=== PATIENT | female | born 1940 | race Caucasian/White ===

== ENCOUNTER 2022-04-25 09:30 | Day surgery (SDC) | payer MEDICARE, MEDICAID, SELFPAY ==
[2022-03-30 08:50] VITALS: BMI 31.2
--- NOTE | 2022-03-31 13:25 | MHC.SHP ---
Pre-Procedural Eval Section A Date of Service: 03/31/22 The patient is an INPATIENT: No Changes since office visit: No Cold of Flu in the past 2 weeks, No New Medical Problems, No Changes in Medication and No Patient answered all questions The History & Physical has been completed within 30 days and I have reviewed it.: Yes Section B Chief Complaint: Age-related nuclear cataract, right eye Allergies: Allergies Allergy/AdvReac Type Severity Reaction Status Date / Time Sulfa (Sulfonamide Allergy Intermediate HEADACHE Unverified 06/11/20 15:34 Antibiotics) [SULFA (SULFONAMIDE ANTIBIOTICS)] generic warfarin AdvReac Intermediate unable to Uncoded 03/30/22 08:50 regulate INR Plan Diagnosis/Plan: Unchanged I have reviewed the history and physical and performed a pertinent physical examination on my patient. No changes have occurred unless specified.
--- NOTE | 2022-04-01 09:31 | P.CONAN_ITS ---
Documented by User: Bee Goldberg NP 04/22/22 14:05 HPI - Anesthesia Eval Consult details Narrative: 81yo F for Right Cataract Extraction IOL Insertion 04/25/22 PCP cleared No previous cataract on record DNR SNF resident, Son is HCP for consents Xarelto for afib/PE [facility] Past Medical History Medical History (Updated 03/30/22 @ 09:08 by Digna Sweeney, MAUREEN) Aortic stenosis Atrial fibrillation Borderline diabetes CAD (coronary artery disease) CHF (congestive heart failure) COVID-19 vaccine series completed CVA (cerebral vascular accident) Elevated cholesterol HTN (hypertension) Pulmonary embolism Resides in alf care facility Seizures Unsteady gait Surgical History Surgical History (Updated 03/30/22 @ 08:50 by Digna Sweeney RN) H/O colonoscopy Hx of heart artery stent Social History Social History Are you a primary healthcare consultant to a significant other at home: No Do you presently have visiting nurse or other home services: Yes (resides at [facility] [place]) Patient Tobacco Use Status: Never used Tobacco Use of substances other than those prescribed or required for medical reasons: No Have you been hit, kicked, punched, or otherwise hurt by someone within the past year? If so, by whom?: No Are you DNR?: Yes Advance Directives: No Advance Directives Information Provided: Yes Advance Directives on File: Yes Advance Directives Date on File: 10/31/13 Recently lost weight without trying: No Nutrition Risks: Surgical patient >75years Poor oral hygiene: No (upper full and lower partial denture) Meds Allergies Allergy/AdvReac Type Severity Reaction Status Date / Time Sulfa (Sulfonamide Allergy Intermediate HEADACHE Unverified 06/11/20 15:34 Antibiotics) [SULFA (SULFONAMIDE ANTIBIOTICS)] generic warfarin AdvReac Intermediate unable to Uncoded 03/30/22 08:50 regulate INR Home Medications Medication Instructions Recorded Confirmed Last Taken Type acetaminophen 325 mg tablet 650 mg PO Q4H PRN Pain 03/30/22 03/30/22 Unknown History atorvastatin 80 mg tablet 80 mg PO BEDTIME 03/30/22 03/30/22 Unknown History calcium carbonate 600 mg calcium 600 mg PO DAILY 03/30/22 03/30/22 Unknown History (1,500 mg) tablet (Calcium) docusate sodium 100 mg capsule 100 mg PO BID 03/30/22 03/30/22 Unknown History (Colace) furosemide 40 mg tablet 40 mg PO DAILY 03/30/22 03/30/22 Unknown History levetiracetam 100 mg/mL oral 1,500 mg PO DAILY 03/30/22 03/30/22 Unknown History solution metoprolol tartrate 25 mg tablet 25 mg PO DAILY 03/30/22 03/30/22 Unknown History multivitamin 1 tab PO DAILY 03/30/22 03/30/22 Unknown History potassium chloride 20 mEq oral 20 meq PO DAILY 03/30/22 03/30/22 Unknown History packet rivaroxaban 15 mg tablet (Xarelto) 15 mg PO DAILY 03/30/22 03/30/22 Unknown History topiramate 100 mg tablet 100 mg PO DAILY 03/30/22 03/30/22 Unknown History Exam Exam Date and Time: April 01, 2022930 Height,Weight and Vital Signs: Height 5 ft Weight 72.575 kg Assessment and Plan Assessment Anesthesia Assessment: Chart Reviewed Documented by User: Adrianne Winchester MD 04/25/22 14:03 [facility] Past Medical History Medical History (Updated 03/30/22 @ 09:08 by Digna Sweeney RN) Aortic stenosis Atrial fibrillation Borderline diabetes CAD (coronary artery disease) CHF (congestive heart failure) COVID-19 vaccine series completed CVA (cerebral vascular accident) Elevated cholesterol HTN (hypertension) Pulmonary embolism Resides in [facility] Seizures Unsteady gait Family History Family history of problems with anesthesia: No Surgical History Surgical History (Updated 03/30/22 @ 08:50 by Digna Sweeney RN) H/O colonoscopy Hx of heart artery stent History of Problems with Anesthesia: No Social History Social History Are you a primary healthcare consultant to a significant other at home: No Do you presently have visiting nurse or other home services: Yes (resides at [facility] [place]) Patient Tobacco Use Status: Never used Tobacco Use of substances other than those prescribed or required for medical reasons: No Have you been hit, kicked, punched, or otherwise hurt by someone within the past year? If so, by whom?: No Are you DNR?: Yes Advance Directives: No Advance Directives Information Provided: Yes Advance Directives on File: Yes Advance Directives Date on File: 10/31/13 Recently lost weight without trying: No Nutrition Risks: Surgical patient >75years Poor oral hygiene: No (upper full and lower partial denture) Meds Allergies Allergy/AdvReac Type Severity Reaction Status Date / Time Sulfa (Sulfonamide Allergy Intermediate HEADACHE Unverified 06/11/20 15:34 Antibiotics) [SULFA (SULFONAMIDE ANTIBIOTICS)] generic warfarin AdvReac Intermediate unable to Uncoded 03/30/22 08:50 regulate INR Home Medications Medication Instructions Recorded Confirmed Last Taken Type acetaminophen 325 mg tablet 650 mg PO Q4H PRN Pain 03/30/22 03/30/22 Unknown History atorvastatin 80 mg tablet 80 mg PO BEDTIME 03/30/22 03/30/22 Unknown History calcium carbonate 600 mg calcium 600 mg PO DAILY 03/30/22 03/30/22 Unknown History (1,500 mg) tablet (Calcium) docusate sodium 100 mg capsule 100 mg PO BID 03/30/22 03/30/22 Unknown History (Colace) furosemide 40 mg tablet 40 mg PO DAILY 03/30/22 03/30/22 Unknown History levetiracetam 100 mg/mL oral 1,500 mg PO DAILY 03/30/22 03/30/22 Unknown History solution metoprolol tartrate 25 mg tablet 25 mg PO DAILY 03/30/22 03/30/22 Unknown History multivitamin 1 tab PO DAILY 03/30/22 03/30/22 Unknown History potassium chloride 20 mEq oral 20 meq PO DAILY 03/30/22 03/30/22 Unknown History packet rivaroxaban 15 mg tablet (Xarelto) 15 mg PO DAILY 03/30/22 03/30/22 Unknown History topiramate 100 mg tablet 100 mg PO DAILY 03/30/22 03/30/22 Unknown History Exam Height,Weight and Vital Signs: Height 5 ft Weight 72.575 kg Vital Signs Temp Pulse Resp BP Pulse Ox O2 Del Method 98.2 F 111 H 18 91/67 95 04/25/22 12:33 04/25/22 12:33 04/25/22 12:33 04/25/22 12:33 04/25/22 12:33 04/25/22 12:33 Airway Mallampati Class: II TM Dist: >3cm Neck ROM: Full Denture: Upper Partial: Lower Heart: ?RRR + systolic murmur Lungs: CTAB Assessment and Plan Assessment Anesthesia Assessment: Anesthesia Plan Discussed Final Anesthetic Review Family History of Problems with Anesthesia: No History of Problems with Anesthesia: No NPO: Yes ASA Class: III Final Preanesthetic Review: No Changes in Pt Med Stat, Meds/Allgs Chart Reviewed, Consent Obtained/Reviewed, Anes Risks/Benef Reviewed and DNR Form (If Appl.) Patient Risk: Intermediate Procedure Risk: Low Assessment/Block/Sedation in SS: Assess/Block/Sedation-SS Anesthetic Plan Anesthetic Plan: MAC: Disposition: Standard PACU
[2022-04-25 12:33] VITALS: BP 91/67; PULSE 111; RESP 18; TEMP 36.8; O2SAT 95
[2022-04-25 12:39] VITALS: BP 91/67; PULSE 111; RESP 18; TEMP 36.8; O2SAT 95
[2022-04-25] MEDS: Tetracaine HCl/PF 0.5% Oph Sol 4 ML DROPS 1 DROP EYE-RIGHT (12:46)
[2022-04-25] MEDS: Tropicamide 1 % Ophth Sol 3 ML BTL 1 DROP EYE-RIGHT ×4 (12:47→12:54)
[2022-04-25] MEDS: Phenylephrine HCL 2.5% Oph SoL 2 ML BOTTLE 1 DROP EYE-RIGHT ×3 (12:47→12:55)
[2022-04-25] MEDS: Cyclopentolate 1 % Ophth Sol 2 ML DRPBTL 1 DROP EYE-RIGHT ×3 (12:47→12:56)
--- NOTE | 2022-04-25 12:59 | HO.PNOPHT ---
Ophthalmology Procedure Procedure Date of Service: 04/25/22 Ophthalmology Viscoelastic: Haydee Méndez Dual Pack Pro Ophthalmology Lenses: TECMANNY [id number] (23) Procedure Notes: PREOPERATIVE DIAGNOSIS: Decreased visual acuity right eye secondary to cataract POSTOPERATIVE DIAGNOSIS: Same PROCEDURE: Right cataract extraction with intraocular lens insertion SURGEON: Oscar Guevara M.D. ANESTHESIA: Topical/MAC ESTIMATED BLOOD LOSS: None COMPLICATIONS: None After obtaining informed consent, the patient was brought to the operating room suite and placed in the supine position. After adequate sedation per anesthesia, topical drops of Tetracaine were given to the right eye. The eye was then prepped and draped in the usual sterile fashion. The operating room microscope was then positioned over the operative eye and a lid speculum placed. A paracentesis was created. Viscoelastic was then instilled into the anterior chamber. A three plane incision was then created temporally, utilizing a 2.85 mm keratome. An air bubble was placed prior to the introduction of Visadyne to stain the anterior capsule.Capsulotomy forceps were then utilized to create a circular tear capsulotomy. Hydrodissection and hydrodelineation were carried out until adequate mobilization of the nucleus occurred. Phacoemulsification was then utilized to remove the dense central nucleus followed by removal of the cortical material utilizing the automated aspiration irrigation unit. Viscoelastic was instilled into the posterior capsular bag followed by placement of a posterior chamber intraocular lens without difficulty. The residual Viscoelastic was then removed utilizing the automated IA machine. The wound was checked and found to be watertight. The patient tolerated the procedure well and the lid speculum was removed. Intracameral injection of Vigamox 0.1 mL followed by a subtenon injection of Kenalog-40 0.2 mL were administered. The patient will be seen in the a.m.
[2022-04-25] MEDS: Lactated Ringers 500 ML 50 ML IV (13:12)
[2022-04-25 14:16] VITALS: BP 126/62; PULSE 85; RESP 16; TEMP 36.4; O2SAT 99
== END 2022-04-25 14:20 | disposition home or self-care (01) ==
PROVIDERS: Visit Provider Ophthalmology
PROC: (CPT 66985; principal; 2022-04-25 13:00)
DX: H25.11 Age-related nuclear cataract, right eye (principal); H54.7 Unspecified visual loss; I25.10 Atherosclerotic heart disease of native coronary artery without angina pectoris; Z98.61 Coronary angioplasty status; I48.91 Unspecified atrial fibrillation; Z79.01 Long term (current) use of anticoagulants; E78.00 Pure hypercholesterolemia, unspecified; I50.9 Heart failure, unspecified; I11.0 Hypertensive heart disease with heart failure; M81.0 Age-related osteoporosis without current pathological fracture; Z79.899 Other long term (current) drug therapy; Z88.2 Allergy status to sulfonamides; F03.90 Unspecified dementia, unspecified severity, without behavioral disturbance, psychotic disturbance, mood disturbance, and anxiety; Z86.73 Personal history of transient ischemic attack (TIA), and cerebral infarction without residual deficits; Z66 Do not resuscitate
CPT/HCPCS: 66984; J2250; J3010; J3300; V2632

== ENCOUNTER 2022-05-16 09:02 | Day surgery (SDC) | payer MEDICARE, MEDICAID, SELFPAY ==
[2022-03-30 08:54] VITALS: BMI 31.2
--- NOTE | 2022-05-13 08:37 | MHC.SHP ---
Pre-Procedural Eval Section A Date of Service: 05/13/22 The patient is an INPATIENT: No Changes since office visit: No Cold of Flu in the past 2 weeks, No New Medical Problems, No Changes in Medication and No Patient answered all questions The History & Physical has been completed within 30 days and I have reviewed it.: Yes Section B Chief Complaint: Age-related nuclear cataract, left eye Allergies: Allergies Allergy/AdvReac Type Severity Reaction Status Date / Time Sulfa (Sulfonamide Allergy Intermediate HEADACHE Unverified 06/11/20 15:34 Antibiotics) [SULFA (SULFONAMIDE ANTIBIOTICS)] generic warfarin AdvReac Intermediate unable to Uncoded 03/30/22 08:50 regulate INR Plan Diagnosis/Plan: Unchanged I have reviewed the history and physical and performed a pertinent physical examination on my patient. No changes have occurred unless specified.
[2022-05-16 09:43] VITALS: BP 154/76; PULSE 110; RESP 20; TEMP 36.6; O2SAT 96
--- NOTE | 2022-05-16 09:58 | PC.NURSE ---
kelly griffith at bedside hcp pt a/ox2
[2022-05-16] MEDS: Tetracaine HCl/PF 0.5% Oph Sol 4 ML DROPS 1 DROP EYE-LEFT (10:00)
[2022-05-16] MEDS: Cyclopentolate 1 % Ophth Sol 2 ML DRPBTL 1 DROP EYE-LEFT ×3 (10:00→10:03)
[2022-05-16] MEDS: Tropicamide 1 % Ophth Sol 3 ML BTL 1 DROP EYE-LEFT ×3 (10:00→10:05)
[2022-05-16] MEDS: Phenylephrine HCL 2.5% Oph SoL 2 ML BOTTLE 1 DROP EYE-LEFT ×3 (10:01→10:04)
--- NOTE | 2022-05-16 10:04 | P.CONAN_ITS ---
[facility] [place] Past Medical History Medical History Aortic stenosis Atrial fibrillation Borderline diabetes CAD (coronary artery disease) CHF (congestive heart failure) COVID-19 vaccine series completed CVA (cerebral vascular accident) Elevated cholesterol HTN (hypertension) Pulmonary embolism Resides in snf care facility Seizures Unsteady gait Surgical History Surgical History H/O colonoscopy Hx of heart artery stent History of Problems with Anesthesia: No Social History Social History Are you a primary respiratory care assistant to a significant other at home: No Do you presently have visiting nurse or other home services: Yes (resides at [facility]) Patient Tobacco Use Status: Never used Tobacco Use of substances other than those prescribed or required for medical reasons: No Have you been hit, kicked, punched, or otherwise hurt by someone within the past year? If so, by whom?: No Are you DNR?: Yes Advance Directives: Yes Advance Directives Information Provided: Yes Advance Directives on File: Yes Advance Directives Date on File: 10/31/13 Recently lost weight without trying: No Nutrition Risks: Surgical patient >75years Poor oral hygiene: No (upper full and lower partial denture) Meds Allergies Allergy/AdvReac Type Severity Reaction Status Date / Time Sulfa (Sulfonamide Allergy Intermediate HEADACHE Verified 05/16/22 09:22 Antibiotics) [SULFA (SULFONAMIDE ANTIBIOTICS)] generic warfarin AdvReac Intermediate unable to Uncoded 03/30/22 08:50 regulate INR Active Medications: Current Medications Povidone Iodine (Povidone Iodine 5 % Ophth Soln 30 Ml Bottle) 1 appl EYE-LEFT PREOP PRN PRN Reason: Pre-Op Surgical Implant Prophy Home Medications Medication Instructions Recorded Confirmed Last Taken Type acetaminophen 325 mg tablet 650 mg PO Q4H PRN Pain 03/30/22 03/30/22 Unknown History atorvastatin 80 mg tablet 80 mg PO BEDTIME 03/30/22 03/30/22 Unknown History calcium carbonate 600 mg calcium 600 mg PO DAILY 03/30/22 03/30/22 Unknown History (1,500 mg) tablet (Calcium) docusate sodium 100 mg capsule 100 mg PO BID 03/30/22 03/30/22 Unknown History (Colace) furosemide 40 mg tablet 40 mg PO DAILY 03/30/22 03/30/22 Unknown History levetiracetam 100 mg/mL oral 1,500 mg PO DAILY 03/30/22 03/30/22 Unknown History solution metoprolol tartrate 25 mg tablet 25 mg PO DAILY 03/30/22 03/30/22 Unknown History multivitamin 1 tab PO DAILY 03/30/22 03/30/22 Unknown History potassium chloride 20 mEq oral 20 meq PO DAILY 03/30/22 03/30/22 Unknown History packet rivaroxaban 15 mg tablet (Xarelto) 15 mg PO DAILY 03/30/22 03/30/22 Unknown History topiramate 100 mg tablet 100 mg PO DAILY 03/30/22 03/30/22 Unknown History Exam Exam Date and Time: May 16, 2022 1004 Height,Weight and Vital Signs: Height 5 ft Weight 72.575 kg Last Vital Signs Temp 98 F 05/16/22 09:43 Pulse 110 H 05/16/22 09:43 Resp 20 05/16/22 09:43 BP 154/76 H 05/16/22 09:43 Pulse Ox 96 05/16/22 09:43 O2 Del Method 05/16/22 09:43 Airway Mallampati Class: II (Edentulous) TM Dist: >3cm Neck ROM: Full Denture: Upper and Lower Loose/Missing/Broken Teeth: Yes, Upper and Lower Heart: RRR Lungs: CTA Assessment and Plan Assessment Anesthesia Assessment: Anesthesia Plan Discussed and Chart Reviewed Final Anesthetic Review History of Problems with Anesthesia: No NPO: Yes ASA Class: III Final Preanesthetic Review: Meds/Allgs Chart Reviewed, Consent Obtained/Reviewed and Anes Risks/Benef Reviewed Patient Risk: Intermediate Procedure Risk: Low Anesthetic Plan Anesthetic Plan: MAC: Disposition: Standard PACU
--- NOTE | 2022-05-16 10:11 | PC.NURSE ---
dr austin at bedside awsre pt eye red and crusty son sts everyone aware of her eye status
--- NOTE | 2022-05-16 10:58 | HO.PNOPHT ---
Ophthalmology Procedure Procedure Date of Service: 05/16/22 Ophthalmology Viscoelastic: Healforeign Hickst Dual Pack Pro Ophthalmology Lenses: TECMANNY [id number] (23) Procedure Notes: PREOPERATIVE DIAGNOSIS: Decreased visual acuity left eye secondary to cataract POSTOPERATIVE DIAGNOSIS: Same PROCEDURE: Left cataract extraction with intraocular lens insertion SURGEON: Oscar Guevara M.D. ANESTHESIA: Topical/MAC ESTIMATED BLOOD LOSS: None COMPLICATIONS: None After obtaining informed consent, the patient was brought to the operation room suite and placed in the supine position. After adequate sedation per anesthesia, topical drops of Tetracaine were given to the left eye. The eye was then prepped and draped in the usual sterile fashion. The operating room microscope was then positioned over the operative eye and a lid speculum placed. A paracentesis was created. Viscoelastic was then instilled into the anterior chamber. A three plane incision was then created temporally, utilizing a 2.85 mm keratome. Capsulotomy forceps were then utilized to create a circular tear capsulotomy. Hydrodissection and hydrodelineation were carried out until adequate mobilization of the nucleus occurred. Phacoemulsification was then utilized to remove the dense central nucleus followed by removal of the cortical material utilizing the automated aspiration irrigation unit. Viscoat elastic was instilled into the posterior capsular bag followed by placement of a posterior chamber intraocular lens without difficulty. The residual Viscoat elastic was then removed utilizing the automated IA machine. The wound was check and found to be watertight. The patient tolerated the procedure well and the lid speculum was removed. Intracameral injection of Vigamox 0.1 mL followed by a subtenon injection of Kenalog-40 0.2 mL were administered. The patient will be seen in the a.m.
[2022-05-16 11:25] VITALS: BP 120/70; PULSE 100; RESP 16; TEMP 37; O2SAT 96
== END 2022-05-16 11:44 | disposition home or self-care (01) ==
PROVIDERS: Visit Provider Ophthalmology
PROC: (CPT 66985; principal; 2022-05-16 11:30)
DX: H25.12 Age-related nuclear cataract, left eye (principal); I69.354 Hemiplegia and hemiparesis following cerebral infarction affecting left non-dominant side; I11.0 Hypertensive heart disease with heart failure; I50.9 Heart failure, unspecified; I69.998 Other sequelae following unspecified cerebrovascular disease; H54.7 Unspecified visual loss; I25.10 Atherosclerotic heart disease of native coronary artery without angina pectoris; Z98.61 Coronary angioplasty status; I48.91 Unspecified atrial fibrillation; E78.00 Pure hypercholesterolemia, unspecified; G40.909 Epilepsy, unspecified, not intractable, without status epilepticus; F03.90 Unspecified dementia, unspecified severity, without behavioral disturbance, psychotic disturbance, mood disturbance, and anxiety; M81.0 Age-related osteoporosis without current pathological fracture; Z79.01 Long term (current) use of anticoagulants; Z79.899 Other long term (current) drug therapy; Z88.2 Allergy status to sulfonamides; Z86.711 Personal history of pulmonary embolism; Z66 Do not resuscitate; Z91.81 History of falling; Z86.16 Personal history of COVID-19
CPT/HCPCS: 66984; J2250; J3300; V2632